=== PATIENT | male | born 1970 | race Caucasian/White ===

== ENCOUNTER 2024-02-15 17:07 | Inpatient (IN) | payer OTHER ==
[2024-02-15 19:03] VITALS: BMI 25.4
[2024-02-15] MEDS ORDERED: IBUPROFEN 400 MG TABLET (FP) PO PRN (21:19)
[2024-02-15] MEDS ORDERED: BISMUTH SUBSALICYLATE 524 MG/30 ML PO PRN (21:19)
[2024-02-15] MEDS ORDERED: BENZONATATE 200 MG CAPSULE PO PRN (21:19)
[2024-02-15] MEDS ORDERED: BENZOCAINE/MENTHOL (CHLORASEPTIC ) LOZENGE MM PRN (21:19)
[2024-02-15] MEDS ORDERED: POLYETHYLENE GLYCOL (HEALTHYLAX) 3350 17 GM PACKET PO PRN (21:19)
[2024-02-15] MEDS ORDERED: ONDANSETRON *ODT* 4 MG TABLET SL PRN (21:19)
[2024-02-15] MEDS ORDERED: NICOTINE POLACRILEX 2 MG LOZENGE BC PRN (21:19)
[2024-02-15] MEDS ORDERED: NALOXONE (NARCAN) HCL 4 MG/0.1 ML SPRAY NS PRN (21:19)
[2024-02-15] MEDS ORDERED: NALOXONE HCL 0.4 MG/ML VIAL IM PRN (21:19)
[2024-02-15] MEDS ORDERED: MAGNESIUM HYDROX 2400MG/30ML ORAL SUSPENSION 30 ML CUP PO PRN (21:19)
[2024-02-15] MEDS ORDERED: guaiFENesin 600 MG TABLET.ER (FP) PO PRN (21:19)
[2024-02-15] MEDS ORDERED: DICYCLOMINE HCL 10 MG CAPSULE PO PRN (21:19)
[2024-02-15] MEDS ORDERED: LOPERAMIDE HCL 2 MG CAPSULE PO PRN (21:19)
[2024-02-15] MEDS ORDERED: NICOTINE POLACRILEX 2 MG GUM BUC PRN (21:19)
[2024-02-15] MEDS: FLUTICASONE PROP 0.05% 16 GM NASAL SPRAY NS SCH (22:40)
[2024-02-15] MEDS: THIAMINE 100 MG TABLET PO SCH (22:46)
[2024-02-15] MEDS: MELATONIN 5 MG TABLETS PO SCH (22:46)
[2024-02-16] MEDS: methaDONE HCL 10 MG TABLET (FOR DETOX USE ONLY) PO ONE (09:29)
[2024-02-16] MEDS: PRENATAL VITAMINS W/ FOLIC ACID TABLET (FP) PO SCH (09:30)
[2024-02-16 10:33] LABS: HEMATOCRIT 32.9 % (35.4-49); MCH 31.9 pg (25.7-33.7); MCHC 33.6 g/dl (32.0-35.9); MEAN CELL VOLUME 95.1 fl (80-96); PLATELET COUNT 210 10^3/uL (134-434); RBC 3.46 M/mm3 (4.00-5.60); RDW 13.5 % (11.9-15.9); WHITE BLOOD COUNT 6.3 K/mm3 (4.0-10.0)
[2024-02-16 10:36] LABS: CALCIUM 8.8 mg/dL (8.5-10.1)
[2024-02-16 10:37] LABS: ALBUMIN 3.6 g/dl (3.4-5.0); BLOOD UREA NITROGEN 19.9 mg/dL (7-18)
[2024-02-16 10:40] LABS: CREATININE 0.6 mg/dL (0.55-1.3)
[2024-02-16 10:41] LABS: BILIRUBIN,TOTAL 0.3 mg/dL (0.2-1); TOT PROT 6.6 g/dl (6.4-8.2)
[2024-02-16] MEDS: FERROUS SO4 325 MG TABLET (FP) PO SCH (13:21)
[2024-02-16] MEDS: cloNIDine HCL 0.1 MG TABLET PO PRN (17:26)
[2024-02-16] MEDS: MAG HYDROX/AL HYDROX/SIMETH 30 ML UNIT-DOSE CUP PO PRN (21:53)
[2024-02-16] MEDS: IBUPROFEN 600 MG TABLET (FP) PO PRN (23:36)
[2024-02-17] MEDS: METHOCARBAMOL 500 MG TABLET PO PRN (22:27)
[2024-02-18] MEDS: methaDONE HCL 10 MG TABLET (FOR DETOX USE ONLY) PO ONE (09:35)
[2024-02-18] MEDS: GABAPENTIN 100 MG CAPSULE PO SCH (13:13)
[2024-02-18] MEDS: P-EPHED 60MG/TRIPROLIDI 2.5MG TABLET PO PRN (23:02)
[2024-02-19] MEDS: ACETAMINOPHEN 325 MG TABLET (FP) PO PRN (02:45)
[2024-02-19] MEDS: traZODone HCL 50 MG TABLET (FP) PO SCH (21:50)
[2024-02-19] MEDS: QUEtiapine FUMARATE 100 MG TABLET (FP) PO SCH (21:50)
[2024-02-20] MEDS: methaDONE HCL 10 MG TABLET (FOR DETOX USE ONLY) PO ONE (09:38)
[2024-02-21 08:55] VITALS: RESP 16
[2024-02-21 12:49] VITALS: BP 111/73; PULSE 80; TEMP 98.7
== END 2024-02-21 15:02 | disposition other institution (70) | DRG 773 ==
LOC: YASAS 17:07 → Y3N 22:35
PROVIDERS: ADMIT Allergy & Immunology; ATTEND Surgery
PROC: HZ2ZZZZ Detoxification Services for Substance Abuse Treatment (ICD-10-PCS; principal; 2024-02-15)
DX: F11.23 Opioid dependence with withdrawal (principal); F12.20 Cannabis dependence, uncomplicated; F17.210 Nicotine dependence, cigarettes, uncomplicated; F19.24 Other psychoactive substance dependence with psychoactive substance-induced mood disorder; G47.00 Insomnia, unspecified; Z86.59 Personal history of other mental and behavioral disorders; Z56.0 Unemployment, unspecified; Z59.00 Homelessness unspecified
CPT/HCPCS: 36415; 80053; 80305; 85027; 86780; 87811; 93005; 93010

== ENCOUNTER 2024-04-05 15:44 | Inpatient (IN) | payer OTHER ==
[2024-04-05 17:13] VITALS: BMI 25.9
[2024-04-05] MEDS ORDERED: MAGNESIUM HYDROX 2400MG/30ML ORAL SUSPENSION 30 ML CUP PO PRN (17:30)
[2024-04-05] MEDS ORDERED: POLYETHYLENE GLYCOL (HEALTHYLAX) 3350 17 GM PACKET PO PRN (17:30)
[2024-04-05] MEDS ORDERED: BENZOCAINE/MENTHOL (CHLORASEPTIC ) LOZENGE MM PRN (17:30)
[2024-04-05] MEDS ORDERED: P-EPHED 60MG/TRIPROLIDI 2.5MG TABLET PO PRN (17:30)
[2024-04-05] MEDS ORDERED: DICYCLOMINE HCL 10 MG CAPSULE PO PRN (17:30)
[2024-04-05] MEDS ORDERED: ACETAMINOPHEN 325 MG TABLET (FP) PO PRN (17:30)
[2024-04-05] MEDS ORDERED: ONDANSETRON *ODT* 4 MG TABLET SL PRN (17:30)
[2024-04-05] MEDS ORDERED: IBUPROFEN 400 MG TABLET (FP) PO PRN (17:30)
[2024-04-05] MEDS ORDERED: NALOXONE (NARCAN) HCL 4 MG/0.1 ML SPRAY NS PRN (17:30)
[2024-04-05] MEDS ORDERED: NICOTINE POLACRILEX 2 MG GUM BUC PRN (17:30)
[2024-04-05] MEDS ORDERED: NICOTINE POLACRILEX 2 MG LOZENGE BC PRN (17:30)
[2024-04-05] MEDS ORDERED: LOPERAMIDE HCL 2 MG CAPSULE PO PRN (17:30)
[2024-04-05] MEDS ORDERED: BENZONATATE 200 MG CAPSULE PO PRN (17:30)
[2024-04-05] MEDS ORDERED: guaiFENesin 600 MG TABLET.ER (FP) PO PRN (17:30)
[2024-04-05] MEDS ORDERED: NALOXONE HCL 0.4 MG/ML VIAL IM PRN (17:30)
[2024-04-05] MEDS: THIAMINE 100 MG TABLET PO SCH (22:25)
[2024-04-05] MEDS: MELATONIN 5 MG TABLETS PO SCH (22:25)
[2024-04-05] MEDS: hydrOXYzine PAMOATE 25 MG CAPSULE (FP) PO PRN (22:26)
[2024-04-05] MEDS: METHOCARBAMOL 500 MG TABLET PO PRN (22:26)
[2024-04-06] MEDS: PRENATAL VITAMINS W/ FOLIC ACID TABLET (FP) PO SCH (09:24)
[2024-04-06] MEDS ORDERED: cloNIDine HCL 0.1 MG TABLET PO PRN (09:26)
[2024-04-06] MEDS: methaDONE HCL 10 MG TABLET (FOR DETOX USE ONLY) PO ONE (10:08)
[2024-04-06 10:52] LABS: HEMATOCRIT 33.4 % (35.4-49); HEMOGLOBIN 11.6 GM/dL (11.7-16.9); MCH 32.6 pg (25.7-33.7); MCHC 34.8 g/dl (32.0-35.9); MEAN CELL VOLUME 93.7 fl (80-96); MEAN PLT VOLUME 8.2 fl (7.5-11.1); PLATELET COUNT 243 10^3/uL (134-434); RBC 3.57 M/mm3 (4.00-5.60); RDW 13.2 % (11.9-15.9); WHITE BLOOD COUNT 4.5 K/mm3 (4.0-10.0)
[2024-04-06 11:00] LABS: POTASSIUM 4.1 mmol/L (3.5-5.1)
[2024-04-06 11:10] LABS: BLOOD UREA NITROGEN 15.5 mg/dL (7-18); CALCIUM 8.5 mg/dL (8.5-10.1)
[2024-04-06 11:11] LABS: ALBUMIN 3.7 g/dl (3.4-5.0)
[2024-04-06 11:14] LABS: CREATININE 0.7 mg/dL (0.55-1.3)
[2024-04-06 11:15] LABS: BILIRUBIN,TOTAL 0.8 mg/dL (0.2-1); TOT PROT 7.2 g/dl (6.4-8.2)
[2024-04-06] MEDS: QUEtiapine FUMARATE 100 MG TABLET (FP) PO SCH (21:11)
[2024-04-07] MEDS: IBUPROFEN 600 MG TABLET (FP) PO PRN (22:42)
[2024-04-08] MEDS: methaDONE HCL 10 MG TABLET (FOR DETOX USE ONLY) PO ONE (09:34)
[2024-04-09] MEDS ORDERED: ceFAZolin SODIUM 1 GM VIAL ONE (13:23)
[2024-04-09] MEDS ORDERED: SODIUM CHLORIDE 0.9% P/F 10 ML VIAL IJ ONE (13:23)
[2024-04-09] MEDS: GABAPENTIN 100 MG CAPSULE PO SCH (13:36)
[2024-04-09] MEDS ORDERED: GABAPENTIN 100 MG CAPSULE PO SCH (14:00)
[2024-04-09] MEDS ORDERED: SUGAMMADEX SODIUM 200 MG/2 ML VIAL ONE (15:18)
[2024-04-09] MEDS ORDERED: METOPROLOL TARTRATE 5 MG/5 ML VIAL ONE (15:33)
[2024-04-09] MEDS: QUEtiapine FUMARATE 50 MG TABLET PO SCH (22:02)
[2024-04-10] MEDS: methaDONE HCL 10 MG TABLET (FOR DETOX USE ONLY) PO ONE (09:47)
[2024-04-10] MEDS: BISMUTH SUBSALICYLATE 524 MG/30 ML PO PRN (17:49)
[2024-04-10] MEDS: MAG HYDROX/AL HYDROX/SIMETH 30 ML UNIT-DOSE CUP PO PRN (23:42)
[2024-04-11 09:45] VITALS: BP 133/80; PULSE 89; RESP 16; TEMP 97.7
== END 2024-04-11 09:32 | disposition home or self-care (01) | DRG 773 ==
LOC: YASAS 15:44 → Y3N 17:41
PROVIDERS: ADMIT Allergy & Immunology; ATTEND Surgery
PROC: HZ2ZZZZ Detoxification Services for Substance Abuse Treatment (ICD-10-PCS; principal; 2024-04-05)
DX: F11.23 Opioid dependence with withdrawal (principal); F17.210 Nicotine dependence, cigarettes, uncomplicated; F19.982 Other psychoactive substance use, unspecified with psychoactive substance-induced sleep disorder; F19.94 Other psychoactive substance use, unspecified with psychoactive substance-induced mood disorder; Z56.0 Unemployment, unspecified; Z59.00 Homelessness unspecified
CPT/HCPCS: 36415; 80053; 80305; 80307; 85027; 86780

== ENCOUNTER 2024-07-09 16:56 | Inpatient (IN) | payer OTHER ==
[2024-07-09 18:34] VITALS: BMI 24.3
[2024-07-09] MEDS ORDERED: MAGNESIUM HYDROX 2400MG/30ML ORAL SUSPENSION 30 ML CUP PO PRN (19:37)
[2024-07-09] MEDS ORDERED: NICOTINE POLACRILEX 2 MG LOZENGE BC PRN (19:37)
[2024-07-09] MEDS ORDERED: BENZOCAINE/MENTHOL (CHLORASEPTIC ) LOZENGE MM PRN (19:37)
[2024-07-09] MEDS ORDERED: MAG HYDROX/AL HYDROX/SIMETH 30 ML UNIT-DOSE CUP PO PRN (19:37)
[2024-07-09] MEDS ORDERED: BENZONATATE 200 MG CAPSULE PO PRN (19:37)
[2024-07-09] MEDS ORDERED: guaiFENesin 600 MG TABLET.ER (FP) PO PRN (19:37)
[2024-07-09] MEDS ORDERED: DICYCLOMINE HCL 10 MG CAPSULE PO PRN (19:37)
[2024-07-09] MEDS ORDERED: IBUPROFEN 400 MG TABLET (FP) PO PRN (19:37)
[2024-07-09] MEDS ORDERED: LOPERAMIDE HCL 2 MG CAPSULE PO PRN (19:37)
[2024-07-09] MEDS ORDERED: POLYETHYLENE GLYCOL (HEALTHYLAX) 3350 17 GM PACKET PO PRN (19:37)
[2024-07-09] MEDS ORDERED: NICOTINE POLACRILEX 2 MG GUM BUC PRN (19:37)
[2024-07-09] MEDS ORDERED: NALOXONE (NARCAN) HCL 4 MG/0.1 ML SPRAY NS PRN (19:37)
[2024-07-09] MEDS: MELATONIN 5 MG TABLETS PO SCH (22:58)
[2024-07-09] MEDS: BACITRACIN 0.9 GM PACKET TP SCH (22:58)
[2024-07-09] MEDS: THIAMINE 100 MG TABLET PO SCH (22:58)
[2024-07-10] MEDS: PRENATAL VITAMINS W/ FOLIC ACID TABLET (FP) PO SCH (10:34)
[2024-07-10] MEDS: NAPROXEN 500 MG TABLET PO SCH (10:35)
[2024-07-10] MEDS: LIDOCAINE 4% PATCH TP SCH (10:35)
[2024-07-10] MEDS: methaDONE HCL 10 MG TABLET (FOR DETOX USE ONLY) PO ONE (10:36)
[2024-07-10] MEDS: diazePAM 5 MG TABLET PO SCH (10:38)
[2024-07-10 11:21] LABS: HEMATOCRIT 32.4 % (35.4-49); HEMOGLOBIN 10.7 GM/dL (11.7-16.9); MCH 32.5 pg (25.7-33.7); MCHC 33.1 g/dl (32.0-35.9); MEAN CELL VOLUME 98.4 fl (80-96); MEAN PLT VOLUME 8.4 fl (7.5-11.1); PLATELET COUNT 205 10^3/uL (134-434)
[2024-07-10 11:27] LABS: CHLORIDE 103 mmol/L (98-107); POTASSIUM 4.4 mmol/L (3.5-5.1); SODIUM 137 mmol/L (136-145)
[2024-07-10 11:39] LABS: ALBUMIN 3.3 g/dl (3.4-5.0); ANION GAP 6 mmol/L (4-13); CALCIUM 8.8 mg/dL (8.5-10.1); CO2 28 mmol/L (21-32)
[2024-07-10 11:40] LABS: GLUCOSE,RANDOM 90 mg/dL (74-106)
[2024-07-10 11:42] LABS: CREATININE 0.6 mg/dL (0.55-1.3); SGOT/AST 32 U/L (15-37); SGPT/ALT 26 U/L (13-61)
[2024-07-10 11:43] LABS: BILIRUBIN,TOTAL 0.4 mg/dL (0.2-1)
[2024-07-10 11:44] LABS: TOT PROT 6.5 g/dl (6.4-8.2)
[2024-07-10 11:45] LABS: ALK PHOS 70 U/L (45-117)
[2024-07-10] MEDS: GABAPENTIN 100 MG CAPSULE PO SCH (13:23)
[2024-07-10] MEDS: cloNIDine HCL 0.1 MG TABLET PO PRN (17:15)
[2024-07-10] MEDS: METHOCARBAMOL 500 MG TABLET PO PRN (17:15)
[2024-07-10] MEDS: QUEtiapine FUMARATE 50 MG TABLET PO SCH (22:22)
[2024-07-10] MEDS: LIDOCAINE PATCH REMOVAL MC SCH (22:22)
[2024-07-11] MEDS: amLODIPine BESYLATE 5 MG TABLET (FP) PO SCH (10:21)
[2024-07-11] MEDS: hydrOXYzine PAMOATE 25 MG CAPSULE (FP) PO PRN (17:27)
[2024-07-12] MEDS: diazePAM 5 MG TABLET PO SCH (05:11)
[2024-07-12] MEDS: methaDONE HCL 10 MG TABLET (FOR DETOX USE ONLY) PO ONE (09:36)
[2024-07-12] MEDS: BISMUTH SUBSALICYLATE 524 MG/30 ML PO PRN (11:30)
[2024-07-12] MEDS: diazePAM 5 MG TABLET PO PRN (11:30)
[2024-07-13] MEDS: diazePAM 5 MG TABLET PO SCH (05:41)
[2024-07-13] MEDS: GABAPENTIN 300 MG CAPSULE PO SCH (14:55)
[2024-07-14] MEDS: diazePAM 5 MG TABLET PO ONE (05:47)
[2024-07-14] MEDS: methaDONE HCL 10 MG TABLET (FOR DETOX USE ONLY) PO ONE (09:56)
[2024-07-14] MEDS: ONDANSETRON *ODT* 4 MG TABLET SL PRN (09:57)
[2024-07-14] MEDS: QUEtiapine FUMARATE 100 MG TABLET (FP) PO SCH (22:54)
[2024-07-15] MEDS: IBUPROFEN 600 MG TABLET (FP) PO PRN (05:30)
[2024-07-16] MEDS: ACETAMINOPHEN 325 MG TABLET (FP) PO PRN (05:36)
[2024-07-16] MEDS: NALOXONE (NYS OPIOID OVERDOSE PROGRAM) 4 MG/0.1 ML SPRAY NS PRN (10:56)
[2024-07-16 11:14] LABS: HEMATOCRIT 34.3 % (35.4-49); HEMOGLOBIN 11.5 GM/dL (11.7-16.9); MCH 32.5 pg (25.7-33.7); MCHC 33.6 g/dl (32.0-35.9); MEAN CELL VOLUME 96.8 fl (80-96); MEAN PLT VOLUME 7.7 fl (7.5-11.1); PLATELET COUNT 292 10^3/uL (134-434); RBC 3.55 M/mm3 (4.00-5.60)
[2024-07-16 12:46] VITALS: BP 137/81; PULSE 90; RESP 16; TEMP 97.3
== END 2024-07-16 14:25 | disposition home or self-care (01) | DRG 773 ==
LOC: YASAS 16:56 → Y3N 22:02
PROVIDERS: ADMIT Allergy & Immunology; ATTEND Surgery
PROC: HZ2ZZZZ Detoxification Services for Substance Abuse Treatment (ICD-10-PCS; principal; 2024-07-09)
DX: F11.23 Opioid dependence with withdrawal (principal); F10.230 Alcohol dependence with withdrawal, uncomplicated; F14.10 Cocaine abuse, uncomplicated; F17.210 Nicotine dependence, cigarettes, uncomplicated; F19.282 Other psychoactive substance dependence with psychoactive substance-induced sleep disorder; F19.280 Other psychoactive substance dependence with psychoactive substance-induced anxiety disorder; F19.24 Other psychoactive substance dependence with psychoactive substance-induced mood disorder; G47.00 Insomnia, unspecified; Z91.81 History of falling
CPT/HCPCS: 36415; 71046-TC-FY; 80053; 80305; 80307; 85027; 86780; 87811; 93005; 93010; Q0162

== ENCOUNTER 2024-08-19 16:19 | Inpatient (IN) | payer OTHER ==
[2024-08-19 17:15] VITALS: BMI 24.9
[2024-08-19] MEDS ORDERED: NALOXONE (NARCAN) HCL 4 MG/0.1 ML SPRAY NS PRN (17:28)
[2024-08-19] MEDS ORDERED: BENZONATATE 200 MG CAPSULE PO PRN (17:28)
[2024-08-19] MEDS ORDERED: DICYCLOMINE HCL 10 MG CAPSULE PO PRN (17:28)
[2024-08-19] MEDS ORDERED: POLYETHYLENE GLYCOL (HEALTHYLAX) 3350 17 GM PACKET PO PRN (17:28)
[2024-08-19] MEDS ORDERED: ACETAMINOPHEN 325 MG TABLET (FP) PO PRN (17:28)
[2024-08-19] MEDS ORDERED: guaiFENesin 600 MG TABLET.ER (FP) PO PRN (17:28)
[2024-08-19] MEDS ORDERED: LOPERAMIDE HCL 2 MG CAPSULE PO PRN (17:28)
[2024-08-19] MEDS ORDERED: IBUPROFEN 400 MG TABLET (FP) PO PRN (17:28)
[2024-08-19] MEDS ORDERED: BENZOCAINE/MENTHOL (CHLORASEPTIC ) LOZENGE MM PRN (17:28)
[2024-08-19] MEDS ORDERED: MAGNESIUM HYDROX 2400MG/30ML ORAL SUSPENSION 30 ML CUP PO PRN (17:28)
[2024-08-19] MEDS: IBUPROFEN 600 MG TABLET (FP) PO PRN (19:47)
[2024-08-19] MEDS: ONDANSETRON *ODT* 4 MG TABLET SL PRN (19:47)
[2024-08-19] MEDS: MELATONIN 5 MG TABLETS PO SCH (22:25)
[2024-08-19] MEDS: THIAMINE 100 MG TABLET PO SCH (22:25)
[2024-08-19] MEDS: diazePAM 5 MG TABLET PO SCH (22:26)
[2024-08-20] MEDS ORDERED: methaDONE HCL 10 MG TABLET (FOR DETOX USE ONLY) PO PRN (09:22)
[2024-08-20] MEDS: methaDONE HCL 10 MG TABLET (FOR DETOX USE ONLY) PO ONE (10:18)
[2024-08-20] MEDS: PRENATAL VITAMINS W/ FOLIC ACID TABLET (FP) PO SCH (10:19)
[2024-08-20] MEDS: hydrOXYzine PAMOATE 25 MG CAPSULE (FP) PO PRN (10:21)
[2024-08-20] MEDS: GABAPENTIN 100 MG CAPSULE PO SCH (13:09)
[2024-08-20] MEDS: METHOCARBAMOL 500 MG TABLET PO PRN (13:10)
[2024-08-20 15:48] LABS: CHLORIDE 106 mmol/L (98-107); POTASSIUM 4.2 mmol/L (3.5-5.1); SODIUM 138 mmol/L (136-145)
[2024-08-20 15:58] LABS: HEMATOCRIT 37.9 % (35.4-49); HEMOGLOBIN 12.7 GM/dL (11.7-16.9); MCH 32.5 pg (25.7-33.7); MCHC 33.6 g/dl (32.0-35.9); MEAN CELL VOLUME 96.8 fl (80-96); MEAN PLT VOLUME 7.9 fl (7.5-11.1); PLATELET COUNT 318 10^3/uL (134-434); RBC 3.92 M/mm3 (4.00-5.60); WHITE BLOOD COUNT 5.4 K/mm3 (4.0-10.0)
[2024-08-20 16:06] LABS: CALCIUM 9.3 mg/dL (8.5-10.1)
[2024-08-20 16:08] LABS: ALBUMIN 3.8 g/dl (3.4-5.0); ANION GAP 6 mmol/L (4-13); BLOOD UREA NITROGEN 17.7 mg/dL (7-18); CO2 26 mmol/L (21-32); CREATININE 0.8 mg/dL (0.55-1.3); GLUCOSE,RANDOM 100 mg/dL (74-106); SGOT/AST 20 U/L (15-37)
[2024-08-20 16:10] LABS: TOT PROT 7.4 g/dl (6.4-8.2)
[2024-08-20 16:11] LABS: ALK PHOS 73 U/L (45-117)
[2024-08-20 16:14] LABS: SGPT/ALT 23 U/L (13-61)
[2024-08-20 16:57] LABS: BILIRUBIN,TOTAL 0.4 mg/dL (0.2-1)
[2024-08-20] MEDS: QUEtiapine FUMARATE 50 MG TABLET PO SCH (22:24)
[2024-08-21] MEDS: diazePAM 5 MG TABLET PO SCH (05:32)
[2024-08-21] MEDS: diazePAM 5 MG TABLET PO PRN (17:31)
[2024-08-21] MEDS: cloNIDine HCL 0.1 MG TABLET PO PRN (17:31)
[2024-08-22] MEDS: diazePAM 5 MG TABLET PO SCH (05:43)
[2024-08-22] MEDS: methaDONE HCL 10 MG TABLET (FOR DETOX USE ONLY) PO ONE (09:29)
[2024-08-22] MEDS: BISMUTH SUBSALICYLATE 524 MG/30 ML PO PRN (17:56)
[2024-08-22] MEDS: QUEtiapine FUMARATE 100 MG TABLET (FP) PO SCH (22:34)
[2024-08-23] MEDS: diazePAM 5 MG TABLET PO ONE (05:41)
[2024-08-23] MEDS: MAG HYDROX/AL HYDROX/SIMETH 30 ML UNIT-DOSE CUP PO PRN (22:43)
[2024-08-24] MEDS: methaDONE HCL 10 MG TABLET (FOR DETOX USE ONLY) PO ONE (10:24)
[2024-08-24] MEDS: NALOXONE (NYS OPIOID OVERDOSE PROGRAM) 4 MG/0.1 ML SPRAY NS SCH (14:15)
[2024-08-24 21:25] VITALS: TEMP 98.2
[2024-08-25 06:42] VITALS: PULSE 78; RESP 16
[2024-08-25 09:44] VITALS: BP 121/79
== END 2024-08-25 12:40 | disposition home or self-care (01) | DRG 773 ==
LOC: YASAS 16:19 → Y6N 18:28
PROVIDERS: ADMIT Allergy & Immunology; ATTEND Surgery
PROC: HZ2ZZZZ Detoxification Services for Substance Abuse Treatment (ICD-10-PCS; principal; 2024-08-19)
DX: F11.23 Opioid dependence with withdrawal (principal); F10.230 Alcohol dependence with withdrawal, uncomplicated; F14.20 Cocaine dependence, uncomplicated; F17.210 Nicotine dependence, cigarettes, uncomplicated; F41.9 Anxiety disorder, unspecified; F19.980 Other psychoactive substance use, unspecified with psychoactive substance-induced anxiety disorder; M25.579 Pain in unspecified ankle and joints of unspecified foot; G89.29 Other chronic pain; Z56.0 Unemployment, unspecified
CPT/HCPCS: 36415; 80053; 80307; 85027; 86780; 93005; 93010; Q0162

== ENCOUNTER 2024-09-24 12:12 | Inpatient (IN) | payer OTHER ==
[2024-09-24 13:00] VITALS: BMI 24.6
[2024-09-24] MEDS ORDERED: POLYETHYLENE GLYCOL (HEALTHYLAX) 3350 17 GM PACKET PO PRN (13:24)
[2024-09-24] MEDS ORDERED: LOPERAMIDE HCL 2 MG CAPSULE PO PRN (13:24)
[2024-09-24] MEDS ORDERED: BENZONATATE 200 MG CAPSULE PO PRN (13:24)
[2024-09-24] MEDS ORDERED: MAGNESIUM HYDROX 2400MG/30ML ORAL SUSPENSION 30 ML CUP PO PRN (13:24)
[2024-09-24] MEDS ORDERED: IBUPROFEN 400 MG TABLET (FP) PO PRN (13:24)
[2024-09-24] MEDS ORDERED: BENZOCAINE/MENTHOL (CHLORASEPTIC ) LOZENGE MM PRN (13:24)
[2024-09-24] MEDS ORDERED: NALOXONE (NARCAN) HCL 4 MG/0.1 ML SPRAY NS PRN (13:24)
[2024-09-24] MEDS ORDERED: BISMUTH SUBSALICYLATE 524 MG/30 ML PO PRN (13:24)
[2024-09-24] MEDS ORDERED: ONDANSETRON *ODT* 4 MG TABLET SL PRN (13:24)
[2024-09-24] MEDS ORDERED: methaDONE HCL 10 MG TABLET (FOR DETOX USE ONLY) PO PRN (13:24)
[2024-09-24] MEDS ORDERED: guaiFENesin 600 MG TABLET.ER (FP) PO PRN (13:24)
[2024-09-24] MEDS ORDERED: ACETAMINOPHEN 325 MG TABLET (FP) PO PRN (13:24)
[2024-09-24] MEDS: NICOTINE 14 MG/24 HOURS TOPICAL PATCH TD SCH (14:49)
[2024-09-24] MEDS ORDERED: methaDONE HCL 10 MG TABLET (FOR DETOX USE ONLY) ONE (15:06)
[2024-09-24] MEDS: PRENATAL VITAMINS W/ FOLIC ACID TABLET (FP) PO SCH (15:10)
[2024-09-24] MEDS: methaDONE HCL 10 MG TABLET (FOR DETOX USE ONLY) PO ONE (15:13)
[2024-09-24] MEDS: diazePAM 5 MG TABLET PO SCH (16:54)
[2024-09-24] MEDS: IBUPROFEN 600 MG TABLET (FP) PO PRN (16:54)
[2024-09-24] MEDS: MAG HYDROX/AL HYDROX/SIMETH 30 ML UNIT-DOSE CUP PO PRN (18:15)
[2024-09-24] MEDS: METHOCARBAMOL 500 MG TABLET PO PRN (19:38)
[2024-09-24] MEDS: hydrOXYzine PAMOATE 25 MG CAPSULE (FP) PO PRN (19:38)
[2024-09-24] MEDS: MELATONIN 5 MG TABLETS PO SCH (22:24)
[2024-09-24] MEDS: GABAPENTIN 300 MG CAPSULE PO SCH (22:24)
[2024-09-24] MEDS: THIAMINE 100 MG TABLET PO SCH (22:24)
[2024-09-24] MEDS: DICYCLOMINE HCL 10 MG CAPSULE PO PRN (22:26)
[2024-09-24] MEDS: cloNIDine HCL 0.1 MG TABLET PO PRN (22:26)
[2024-09-25 15:07] LABS: HEMATOCRIT 33.8 % (35.4-49); MCH 32.7 pg (25.7-33.7); MCHC 32.7 g/dl (32.0-35.9); MEAN PLT VOLUME 8.1 fl (7.5-11.1); PLATELET COUNT 201 10^3/uL (134-434); RBC 3.38 M/mm3 (4.00-5.60); RDW 13.9 % (11.9-15.9); WHITE BLOOD COUNT 3.3 K/mm3 (4.0-10.0)
[2024-09-25 15:22] LABS: CHLORIDE 102 mmol/L (98-107); SODIUM 136 mmol/L (136-145)
[2024-09-25 15:48] LABS: ALBUMIN 3.7 g/dl (3.4-5.0); ANION GAP 8 mmol/L (4-13); BLOOD UREA NITROGEN 17.6 mg/dL (7-18); CALCIUM 8.7 mg/dL (8.5-10.1); CO2 26 mmol/L (21-32); GLUCOSE,RANDOM 75 mg/dL (74-106)
[2024-09-25 15:51] LABS: CREATININE 1.1 mg/dL (0.55-1.3); SGOT/AST 49 U/L (15-37); SGPT/ALT 34 U/L (13-61)
[2024-09-25 15:53] LABS: BILIRUBIN,TOTAL 0.4 mg/dL (0.2-1); TOT PROT 6.9 g/dl (6.4-8.2)
[2024-09-25 15:54] LABS: ALK PHOS 79 U/L (45-117)
[2024-09-26] MEDS: diazePAM 5 MG TABLET PO SCH (06:03)
[2024-09-26] MEDS: diazePAM 5 MG TABLET PO PRN (09:41)
[2024-09-26] MEDS: methaDONE HCL 10 MG TABLET (FOR DETOX USE ONLY) PO ONE (09:41)
[2024-09-26] MEDS: QUEtiapine FUMARATE 100 MG TABLET (FP) PO SCH (21:54)
[2024-09-27] MEDS: diazePAM 5 MG TABLET PO SCH (06:03)
[2024-09-28] MEDS: diazePAM 5 MG TABLET PO ONE (05:49)
[2024-09-28] MEDS: methaDONE HCL 10 MG TABLET (FOR DETOX USE ONLY) PO ONE (10:15)
[2024-09-29] MEDS: NALOXONE (NYS OPIOID OVERDOSE PROGRAM) 4 MG/0.1 ML SPRAY NS SCH (08:55)
[2024-09-29 09:11] VITALS: TEMP 98.1
[2024-09-29 12:43] VITALS: BP 139/80; PULSE 80; RESP 17
== END 2024-09-29 12:50 | disposition home or self-care (01) | DRG 773 ==
LOC: YASAS 12:12 → Y6N 14:56
PROVIDERS: ADMIT Allergy & Immunology; ATTEND Allergy & Immunology
PROC: HZ2ZZZZ Detoxification Services for Substance Abuse Treatment (ICD-10-PCS; principal; 2024-09-24)
DX: F11.23 Opioid dependence with withdrawal (principal); F10.230 Alcohol dependence with withdrawal, uncomplicated; F14.20 Cocaine dependence, uncomplicated; F17.210 Nicotine dependence, cigarettes, uncomplicated; F19.280 Other psychoactive substance dependence with psychoactive substance-induced anxiety disorder; F19.24 Other psychoactive substance dependence with psychoactive substance-induced mood disorder; F41.9 Anxiety disorder, unspecified; F32.9 Major depressive disorder, single episode, unspecified; F41.0 Panic disorder [episodic paroxysmal anxiety]; M25.572 Pain in left ankle and joints of left foot; M54.50 Low back pain, unspecified; G89.29 Other chronic pain
CPT/HCPCS: 36415; 80053; 80307; 85027; 86780; 93005; 93010

== ENCOUNTER 2025-03-01 16:42 | Inpatient (IN) | payer OTHER ==
[2025-03-01 17:15] VITALS: BMI 25.7
[2025-03-01] MEDS ORDERED: LOPERAMIDE HCL 2 MG CAPSULE PO PRN (19:25)
[2025-03-01] MEDS ORDERED: DICYCLOMINE HCL 10 MG CAPSULE PO PRN (19:25)
[2025-03-01] MEDS ORDERED: NICOTINE POLACRILEX 2 MG LOZENGE BC PRN (19:25)
[2025-03-01] MEDS ORDERED: BISMUTH SUBSALICYLATE 524 MG/30 ML PO PRN (19:25)
[2025-03-01] MEDS ORDERED: IBUPROFEN 400 MG TABLET (FP) PO PRN (19:25)
[2025-03-01] MEDS ORDERED: BENZONATATE 200 MG CAPSULE PO PRN (19:25)
[2025-03-01] MEDS ORDERED: methaDONE HCL 10 MG TABLET (FOR DETOX USE ONLY) PO PRN (19:25)
[2025-03-01] MEDS ORDERED: BENZOCAINE/MENTHOL (CHLORASEPTIC ) LOZENGE MM PRN (19:25)
[2025-03-01] MEDS ORDERED: POLYETHYLENE GLYCOL (HEALTHYLAX) 3350 17 GM PACKET PO PRN (19:25)
[2025-03-01] MEDS ORDERED: NALOXONE (NARCAN) HCL 4 MG/0.1 ML SPRAY NS PRN (19:25)
[2025-03-01] MEDS ORDERED: ACETAMINOPHEN 325 MG TABLET (FP) PO PRN (19:25)
[2025-03-01] MEDS: methaDONE HCL 10 MG TABLET (FOR DETOX USE ONLY) PO ONE (20:30)
[2025-03-01] MEDS ORDERED: methaDONE HCL 10 MG TABLET (FOR DETOX USE ONLY) ONE (20:51)
[2025-03-01] MEDS ORDERED: IBUPROFEN 600 MG TABLET (FP) PO ONE (20:51)
[2025-03-01] MEDS: IBUPROFEN 600 MG TABLET (FP) PO PRN (20:53)
[2025-03-01] MEDS: MELATONIN 5 MG TABLETS PO SCH (21:33)
[2025-03-01] MEDS: THIAMINE 100 MG TABLET PO SCH (21:33)
[2025-03-01] MEDS: hydrOXYzine PAMOATE 25 MG CAPSULE (FP) PO PRN (22:12)
[2025-03-02 09:37] LABS: HEMATOCRIT 32.8 % (40.1-51.0); HEMOGLOBIN 10.7 g/dL (13.7-17.5); MCHC 32.6 g/dl (32.3-36.5); MEAN CELL VOLUME 95.1 fl (79.0-92.2); MEAN PLT VOLUME 10.1 fl (9.4-12.4); PLATELET COUNT 198 x10^3/uL (163-337)
[2025-03-02 09:40] LABS: CHLORIDE 102 mmol/L (98-107); POTASSIUM 3.6 mmol/L (3.5-5.1); SODIUM 138 mmol/L (136-145)
[2025-03-02 09:43] LABS: CALCIUM 8.8 mg/dL (8.5-10.1)
[2025-03-02 09:44] LABS: ALBUMIN 3.1 g/dl (3.4-5.0); ANION GAP 9 mmol/L (4-13); BLOOD UREA NITROGEN 17.8 mg/dL (7-18); CO2 27 mmol/L (21-32); GLUCOSE,RANDOM 111 mg/dL (74-106)
[2025-03-02 09:47] LABS: CREATININE 0.9 mg/dL (0.55-1.3); SGOT/AST 35 U/L (15-37); SGPT/ALT 51 U/L (13-61)
[2025-03-02 09:48] LABS: BILIRUBIN,TOTAL 0.3 mg/dL (0.2-1); TOT PROT 6.4 g/dl (6.4-8.2)
[2025-03-02 09:50] LABS: ALK PHOS 65 U/L (45-117)
[2025-03-02] MEDS: PRENATAL VITAMINS W/ FOLIC ACID TABLET (FP) PO SCH (10:04)
[2025-03-02] MEDS: METHOCARBAMOL 500 MG TABLET PO PRN (10:06)
[2025-03-02] MEDS: GABAPENTIN 300 MG CAPSULE PO SCH (13:21)
[2025-03-02] MEDS: QUEtiapine FUMARATE 100 MG TABLET (FP) PO SCH (22:05)
[2025-03-02] MEDS: guaiFENesin 600 MG TABLET.ER (FP) PO PRN (22:06)
[2025-03-02] MEDS: MAGNESIUM HYDROX 2400MG/30ML ORAL SUSPENSION 30 ML CUP PO PRN (22:09)
[2025-03-03] MEDS: methaDONE HCL 10 MG TABLET (FOR DETOX USE ONLY) PO ONE (10:02)
[2025-03-03] MEDS: cloNIDine HCL 0.1 MG TABLET PO PRN (17:45)
[2025-03-05] MEDS: methaDONE HCL 10 MG TABLET (FOR DETOX USE ONLY) PO ONE (09:39)
[2025-03-05] MEDS: ONDANSETRON *ODT* 4 MG TABLET SL PRN (09:44)
[2025-03-06] MEDS: MAG HYDROX/AL HYDROX/SIMETH 30 ML UNIT-DOSE CUP PO PRN (06:01)
[2025-03-06 09:30] VITALS: BP 135/77; PULSE 83; RESP 15; TEMP 98
== END 2025-03-06 11:16 | disposition home or self-care (01) | DRG 773 ==
LOC: YASAS 16:42 → Y6N 20:41
PROVIDERS: ADMIT Allergy & Immunology; ATTEND Allergy & Immunology
PROC: HZ2ZZZZ Detoxification Services for Substance Abuse Treatment (ICD-10-PCS; principal; 2025-03-01)
DX: F11.23 Opioid dependence with withdrawal (principal); F17.210 Nicotine dependence, cigarettes, uncomplicated; F19.282 Other psychoactive substance dependence with psychoactive substance-induced sleep disorder; F19.24 Other psychoactive substance dependence with psychoactive substance-induced mood disorder; F41.9 Anxiety disorder, unspecified; G47.00 Insomnia, unspecified; M54.9 Dorsalgia, unspecified; G89.29 Other chronic pain
CPT/HCPCS: 36415; 80053; 80305; 80307; 85027; 86780; 93005; 93010; Q0162

== ENCOUNTER 2025-05-08 17:32 | Inpatient (IN) | payer OTHER ==
[2025-05-08 18:07] VITALS: BMI 27.5
[2025-05-08] MEDS ORDERED: DICYCLOMINE HCL 10 MG CAPSULE PO PRN (18:12)
[2025-05-08] MEDS ORDERED: ACETAMINOPHEN 325 MG TABLET (FP) PO PRN (18:12)
[2025-05-08] MEDS ORDERED: NALOXONE (NARCAN) HCL 4 MG/0.1 ML SPRAY NS PRN (18:12)
[2025-05-08] MEDS ORDERED: LOPERAMIDE HCL 2 MG CAPSULE PO PRN (18:12)
[2025-05-08] MEDS ORDERED: BENZOCAINE/MENTHOL (CHLORASEPTIC ) LOZENGE MM PRN (18:12)
[2025-05-08] MEDS ORDERED: NICOTINE POLACRILEX 2 MG GUM BUC PRN (18:12)
[2025-05-08] MEDS ORDERED: IBUPROFEN 400 MG TABLET (FP) PO PRN (18:12)
[2025-05-08] MEDS ORDERED: MAGNESIUM HYDROX 2400MG/30ML ORAL SUSPENSION 30 ML CUP PO PRN (18:12)
[2025-05-08] MEDS ORDERED: guaiFENesin 600 MG TABLET.ER (FP) PO PRN (18:12)
[2025-05-08] MEDS ORDERED: BENZONATATE 200 MG CAPSULE PO PRN (18:12)
[2025-05-08] MEDS ORDERED: NICOTINE POLACRILEX 2 MG LOZENGE BC PRN (18:12)
[2025-05-08] MEDS ORDERED: BISMUTH SUBSALICYLATE 524 MG/30 ML PO PRN (18:12)
[2025-05-08] MEDS ORDERED: MAG HYDROX/AL HYDROX/SIMETH 30 ML UNIT-DOSE CUP ONE (18:50)
[2025-05-08] MEDS: MAG HYDROX/AL HYDROX/SIMETH 30 ML UNIT-DOSE CUP PO PRN (18:53)
[2025-05-08] MEDS: METHOCARBAMOL 500 MG TABLET PO PRN (22:46)
[2025-05-08] MEDS: THIAMINE 100 MG TABLET PO SCH (22:47)
[2025-05-08] MEDS: MELATONIN 5 MG TABLETS PO SCH (22:47)
[2025-05-09] MEDS: PRENATAL VITAMINS W/ FOLIC ACID TABLET (FP) PO SCH (11:17)
[2025-05-09 11:57] LABS: MCHC 32.4 g/dl (32.3-36.5); MEAN CELL VOLUME 99.7 fl (79.0-92.2); MEAN PLT VOLUME 9.5 fl (9.4-12.4); RDW 13.9 % (12.2-16.1)
[2025-05-09 12:04] LABS: GLUCOSE,RANDOM 84 mg/dL (74-106); TOT PROT 6.6 g/dl (6.4-8.2)
[2025-05-09 12:05] LABS: CO2 27 mmol/L (21-32)
[2025-05-09 12:07] LABS: ALK PHOS 54 U/L (40-150)
[2025-05-09 12:09] LABS: SGOT/AST 19 U/L (5-34); SGPT/ALT 13 U/L (0-55)
[2025-05-09 12:10] LABS: CREATININE 0.80 mg/dL (0.55-1.3)
[2025-05-09] MEDS: IBUPROFEN 600 MG TABLET (FP) PO PRN (18:08)
[2025-05-12 09:16] VITALS: BP 123/90; PULSE 64; RESP 18; TEMP 97.1
[2025-05-12] MEDS: ONDANSETRON *ODT* 4 MG TABLET SL PRN (09:51)
[2025-05-12] MEDS: POLYETHYLENE GLYCOL (HEALTHYLAX) 3350 17 GM PACKET PO PRN (12:17)
== END 2025-05-12 13:43 | disposition home or self-care (01) | DRG 773 ==
LOC: YASAS 17:32 → Y3N 18:24
PROVIDERS: ADMIT Neuromusculoskeletal Medicine & OMM; ATTEND Allergy & Immunology
PROC: HZ2ZZZZ Detoxification Services for Substance Abuse Treatment (ICD-10-PCS; principal; 2025-05-08)
DX: F11.23 Opioid dependence with withdrawal (principal); F10.230 Alcohol dependence with withdrawal, uncomplicated; F17.210 Nicotine dependence, cigarettes, uncomplicated; M25.572 Pain in left ankle and joints of left foot; G89.29 Other chronic pain
CPT/HCPCS: 36415; 80053; 80307; 85027; 86780; Q0162